=== PATIENT | female | born 2000 | race Caucasian/White ===

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

== ENCOUNTER → 2021-02-25 | Outpatient (REF) | payer OTHER ==
[2021-02-25 16:05] LABS: ALBUMIN 4.3 GM/DL (3.2-5.2); ALT/SGPT 18 U/L (12-78); BILIRUBIN,TOTAL 0.4 MG/DL (0.2-1.0); BLOOD UREA NITROGEN 8 MG/DL (7-18); CALCIUM LEVEL 9.2 MG/DL (8.5-10.1); CARBON DIOXIDE LEVEL 27 MEQ/L (21-32); CHLORIDE LEVEL 106 MEQ/L (98-107); CREATININE FOR GFR 0.79 MG/DL (0.55-1.30); FREE T4 1.35 NG/DL (0.78-1.33); GLUCOSE, FASTING 81 MG/DL (70-100); MAGNESIUM LEVEL 2.3 MG/DL (1.8-2.4); POTASSIUM SERUM 4.6 MEQ/L (3.5-5.1); SODIUM LEVEL 138 MEQ/L (136-145); TOTAL PROTEIN 7.5 GM/DL (6.4-8.2)
== END ==
LOC: M SFHCCAPE 10:28
PROVIDERS: ATTEND Physician Assistant
DX: R94.6 Abnormal results of thyroid function studies (principal); E87.6 Hypokalemia

== ENCOUNTER → 2021-03-09 | Outpatient (CLI) | payer BC, OTHER | LOC: M PLAIMG 12:35 | PROVIDERS: ATTEND Physician Assistant | DX: J33.0 Polyp of nasal cavity (principal); J32.0 Chronic maxillary sinusitis ==

== ENCOUNTER → 2021-04-05 | Outpatient (CLI) | payer BC, OTHER | LOC: M RAD 17:44 | PROVIDERS: ATTEND Otolaryngology | DX: J33.9 Nasal polyp, unspecified (principal); J32.4 Chronic pansinusitis ==

== ENCOUNTER → 2021-05-10 | Outpatient (REF) | payer OTHER ==
[2021-05-10 16:44] LABS: FREE T3 4.2 PG/ML (2.9-4.5); FREE T4 1.43 NG/DL (0.78-1.33); THYROID STIMULATING HORMONE 2.25 uIU/ML (0.463-3.98)
== END ==
LOC: M SFHCCAPE 08:37
PROVIDERS: ATTEND Physician Assistant
DX: F32.2 Major depressive disorder, single episode, severe without psychotic features (principal); R94.6 Abnormal results of thyroid function studies; R63.4 Abnormal weight loss; R61 Generalized hyperhidrosis

== ENCOUNTER → 2021-06-16 | Outpatient (REF) | payer BC, OTHER ==
[~2021-06-16] MED LIST: FLUTISP; OXYB5TAB10; SERT25TA21; SPIR50TA4
[2021-06-16 16:51] LABS: FREE T4 1.15 NG/DL (0.78-1.33); THYROID STIMULATING HORMONE 1.82 uIU/ML (0.463-3.98)
== END ==
LOC: M LABDRWCV 15:32
PROVIDERS: ATTEND Nurse Practitioner Family
DX: R94.6 Abnormal results of thyroid function studies (principal); R61 Generalized hyperhidrosis

== ENCOUNTER → 2021-07-01 | Outpatient (REF) | payer BC, OTHER | LOC: M LABDRWCV 15:42 | PROVIDERS: ATTEND Nurse Practitioner Family | DX: R61 Generalized hyperhidrosis (principal) ==